=== PATIENT | male | born 1960 | race Caucasian/White ===

== ENCOUNTER 2019-11-08 08:49 | Emergency (ER) | payer BC, OTHER ==
--- NOTE | 2019-11-08 09:49 | EDM.PDOC ---
ED HPI GENERAL MEDICAL PROBLEM - General Chief Complaint: Laceration Stated Complaint: LACERATION ON RT FINGER Time Seen by Provider: 11/08/19 08:55 Source of Information: Reports: Patient History Limitations: Reports: No Limitations - History of Present Illness INITIAL COMMENTS - FREE TEXT/NARRATIVE: Patient presented to the ED because of a rt mid finger injury. He accidentally hit his rt mid finger tip with a sledge hammer. H esustained a 1 cm irregular laceration over the lateral aspect of rt 3rd finger. R index finger tip Pain Score (Numeric/FACES): 6 - Related Data Allergies Allergy/AdvReac Type Severity Reaction Status Date / Time No Known Allergies Allergy Verified 11/08/19 08:56 Home Meds: Home Meds Ibuprofen [Advil] 200 - 600 mg PO Q4HR 01/21/15 [History] Meloxicam 15 mg PO DAILY 11/08/19 [History] cephALEXin [Keflex] 500 mg PO TID #30 capsule 11/08/19 [Rx] lisinopriL [Lisinopril] 10 mg PO DAILY 11/08/19 [History] Past Medical History Cardiovascular History: Reports: Hypertension Musculoskeletal History: Reports: Arthritis, Fracture Other Musculoskeletal History: hx fx L wrist - Infectious Disease History Infectious Disease History: Reports: Chicken Pox, Measles - Past Surgical History HEENT Surgical History: Reports: Adenoidectomy, Oral Surgery, Tonsillectomy Musculoskeletal Surgical History: Reports: ORIF Other Musculoskeletal Surgeries/Procedures:: L wrist Social & Family History - Family History Family Medical History: Noncontributory - Tobacco Use Smoking Status *Q: Former Smoker Years of Tobacco use: 10 Used Tobacco, but Quit: Yes Month/Year Tobacco Last Used: 1982 - Caffeine Use Caffeine Use: Reports: Coffee - Alcohol Use Days Per Week of Alcohol Use: 3 Number of Drinks Per Day: 4 Total Drinks Per Week: 12 - Recreational Drug Use Recreational Drug Use: No ED ROS GENERAL - Review of Systems Review Of Systems: See Below Constitutional: Reports: No Symptoms HEENT: Reports: No Symptoms Respiratory: Reports: No Symptoms Cardiovascular: Reports: No Symptoms Endocrine: Reports: No Symptoms GI/Abdominal: Reports: No Symptoms : Reports: No Symptoms Musculoskeletal: Reports: No Symptoms Skin: Reports: Wound Neurological: Reports: No Symptoms Psychiatric: Reports: No Symptoms ED EXAM, SKIN/RASH Exam: See Below Exam Limited By: No Limitations General Appearance: Alert, No Apparent Distress Eye Exam: Bilateral Eye: PERRL Ears: Normal External Exam, Normal Canal Nose: Normal Inspection, Normal Mucosa, No Blood Throat/Mouth: Normal Inspection, Normal Lips, Normal Teeth Head: Atraumatic, Normocephalic Neck: Normal Inspection, Supple, Non-Tender Respiratory/Chest: No Respiratory Distress, Lungs Clear, Normal Breath Sounds Cardiovascular: Normal Peripheral Pulses, Regular Rate, Rhythm, No Edema, No Gallop GI/Abdominal: Normal Bowel Sounds, Soft, Non-Tender, No Organomegaly Back Exam: Normal Inspection, Full Range of Motion Extremities: Normal Inspection, Normal Range of Motion, Non-Tender Neurological: Alert, Oriented, CN II-XII Intact, Normal Cognition Skin: Warm ED SKIN PROCEDURES - Laceration/Wound Repair Right Digit - 3rd (Middle) Appearance: Superficial, Mildly Contaminated Distal NVT: Neuro & Vascular Intact Anesthetic Type: Local Local Anesthesia - Lidocaine (Xylocaine): 1% Plain Local Anesthetic Volume: 1cc Skin Prep: Chlorhexidine (Hibiciens), Saline Saline Irrigation (cc's): 100 Exploration/Debridement/Repair: Wound Explored Closed with: Sutures Lac/Wound length In cm: 91 Suture Size: 3-0 # of Sutures: 4 Suture Type: Other (cut gut) Course - Vital Signs Text/Narrative:: UTD with immunization Last Recorded V/S: Last Vital Signs Temp 36.9 C 11/08/19 08:53 Pulse 66 11/08/19 09:55 Resp 18 11/08/19 09:55 BP 131/48 L 11/08/19 09:55 Pulse Ox 98 11/08/19 09:55 Departure - Departure Time of Disposition: 09:45 Disposition: Home, Self-Care 01 Condition: Good Clinical Impression: Laceration - Discharge Information Prescriptions: cephALEXin [Keflex] 500 mg PO TID #30 capsule Instructions: Laceration Care, Adult Referrals: Michelle Ramirez PA [Primary Care Provider] - Forms: ED Department Discharge Additional Instructions: Please read discharge instructions on laceration and wound care No need to apply antibiotic ointment because you are taking an oral antibiotic The suture that I used is absorbable one. No nee to remove it. It will eventually fall off. You may take ibuprofen 800 mg with tylenol 1000 mg every 8hours as needed for pain Follow uo as needed Sepsis Event Note (ED) - Evaluation Sepsis Screening Result: No Definite Risk - Focused Exam Vital Signs: Vital Signs Temp Pulse Resp BP Pulse Ox 11/08/19 09:55 66 18 131/48 L 98 11/08/19 08:53 36.9 C 78 18 133/82 99
[2019-11-08 11:02] VITALS: BP 131/48; PULSE 66
== END 2019-11-08 10:12 | disposition home or self-care (01) ==
LOC: FB.ED 08:49
DX: S61.212A Laceration without foreign body of right middle finger without damage to nail, initial encounter (principal); I10 Essential (primary) hypertension; Z87.891 Personal history of nicotine dependence; Z79.899 Other long term (current) drug therapy; W27.8XXA Contact with other nonpowered hand tool, initial encounter
CPT/HCPCS: 12001; 99282; 99283; J2001

== ENCOUNTER 2021-08-07 06:18 | Day surgery (SDC) | payer BC, OTHER ==
[~2021-08-07 06:18] MED LIST: Lactated Ringers 1,000 ML IV SCH; Sodium Chloride 0.9% 10 ML Syringe FLUSH PRN
[2021-08-07] MEDS ORDERED: Propofol 200 MG/20 ML SDV IV ONE (06:19)
[2021-08-07 08:16] VITALS: BP 139/91; PULSE 65
== END 2021-08-07 08:16 | disposition home or self-care (01) ==
LOC: FB.SDS 06:18
PROVIDERS: ATTEND Surgery
DX: Z12.11 Encounter for screening for malignant neoplasm of colon (principal); K42.0 Umbilical hernia with obstruction, without gangrene; I10 Essential (primary) hypertension; Z79.899 Other long term (current) drug therapy; Z86.010 Personal history of colon polyps
CPT/HCPCS: 45378; J2704; J7120

== ENCOUNTER 2021-12-17 06:08 | Day surgery (SDC) | payer BC ==
[2021-12-17] MEDS ORDERED: Lactated Ringers 1,000 ML IV SCH (06:15)
[2021-12-17] MEDS ORDERED: Sodium Chloride 0.9% 10 ML Syringe FLUSH PRN (06:15)
[2021-12-17 06:52] VITALS: PULSE 69
[2021-12-17] MEDS ORDERED: ceFAZolin 2 GM in Sodium Chloride 0.9% 100 ML IV ONE (07:30)
[2021-12-17 07:56] VITALS: BP 161/92
[2021-12-17] MEDS ORDERED: Bupivacaine 0.5% 50 ML MDV INJECT ONE (07:57)
[2021-12-17] MEDS ORDERED: Lidocaine 1% with EPINEPHrine 1:100,000 20 ML MDV INJECT ONE (07:57)
[2021-12-17] MEDS ORDERED: fentaNYL 100 MCG/2 ML SDV IV ONE (08:00)
[2021-12-17] MEDS ORDERED: Midazolam 1 MG/ML 2 ML SDV IV ONE (08:00)
[2021-12-17] MEDS ORDERED: Ondansetron 4 MG/2 ML SDV IVPUSH ONE (08:00)
[2021-12-17] MEDS ORDERED: Propofol 200 MG/20 ML SDV IV ONE (08:00)
== END 2021-12-17 09:46 | disposition home or self-care (01) ==
LOC: FB.SDS 06:08
PROVIDERS: ATTEND Surgery
DX: K42.9 Umbilical hernia without obstruction or gangrene (principal); I10 Essential (primary) hypertension; Z79.899 Other long term (current) drug therapy; Z98.890 Other specified postprocedural states
CPT/HCPCS: 49585; J0690; J2250; J2405; J2704; J3010; J3490; J7120; 88302